=== PATIENT | male | born 1965 | race Two or more races ===

== ENCOUNTER → 2017-03-05 | Outpatient (CLI) | payer OTHER | LOC: CIMAGING 16:12 | PROVIDERS: ATTEND Family Medicine | DX: M54.2 Cervicalgia (principal); G89.29 Other chronic pain; M62.830 Muscle spasm of back; M50.30 Other cervical disc degeneration, unspecified cervical region; M54.6 Pain in thoracic spine | CPT/HCPCS: 72040-PO; 72070-PO ==